=== PATIENT | male | born 1965 | race Caucasian/White ===

== ENCOUNTER 2017-07-11 08:16 | Emergency (ER) | payer MEDICAID, OTHER, SELFPAY ==
[~2017-07-11] VITALS: Ht 172.7 cm; Wt 70.1 kg
[2017-07-11 08:19] VITALS: BP 134/86
== END 2017-07-11 09:12 | disposition home or self-care (01) ==
LOC: ED 09:05
DX: B35.4 Tinea corporis (principal)
CPT/HCPCS: 82962; 99283

== ENCOUNTER 2018-02-05 23:52 | Emergency (ER) | payer MEDICAID, OTHER ==
[~2018-02-05] VITALS: Ht 172.7 cm; Wt 74.0 kg
[2018-02-05 23:53] VITALS: BP 141/95
== END 2018-02-06 00:49 | disposition home or self-care (01) ==
LOC: ED 23:59
DX: R21 Rash and other nonspecific skin eruption (principal); B35.4 Tinea corporis
CPT/HCPCS: 99283

== ENCOUNTER 2020-05-18 12:13 | Emergency (ER) | payer MEDICAID ==
[~2020-05-18] VITALS: Ht 172.7 cm; Wt 71.3 kg
--- NOTE | 2020-05-18 12:56 | NUR ---
discharge planner: patient ambulatory to room from [facility]
[2020-05-18] MEDS ORDERED: SODIUM CHLORIDE FLUSH 10ML SYR IVF ONE (13:30)
[2020-05-18] MEDS ORDERED: LISI-170 PO (13:43)
[2020-05-18 13:48] LABS: BASOPHILS % (AUTO) 0 % (0-1); EOSINOPHILS % (AUTO) 2 % (1-7); LYMPHOCYTES % (AUTO) 15 % (22-44); MEAN CORPUSCULAR HEMOGLOBIN 31.7 pg (27.5-34.5); MEAN CORPUSCULAR HGB CONC 33.2 g/dL (33.2-36.2); MONOCYTES % (AUTO) 42 % (2-9); NEUTROPHILS % (AUTO) 42 % (42-75); PLATELET COUNT 207 x10^3/uL (130-400); RED BLOOD COUNT 4.67 x10^6/uL (4.38-5.82); RED CELL DISTRIBUTION WIDTH 13.4 % (9.4-14.8)
--- NOTE | 2020-05-18 13:49 | NUR ---
BREAK RN: PT VSS, PIV ESTABLISHED W/O DIFFICULTY. POC DISCUSSED AND QUESTIONS ANSWERED. CALL LIGHT W/I REACH, NAD NOTED.
[2020-05-18 13:51] LABS: ALANINE AMINOTRANSFERASE 75 U/L (12-78); ALBUMIN 3.9 g/dL (3.4-5.0); ANION GAP 5 mmol/L (5-15); CALCIUM 9.3 mg/dL (8.5-10.1); CHLORIDE 102 mmol/L (98-107); CREATININE 0.71 mg/dL (0.7-1.3)
[2020-05-18 13:52] LABS: MD NO
[2020-05-18 13:53] LABS: ALKALINE PHOSPHATASE 59 U/L (45-117); BILIRUBIN,TOTAL 0.8 mg/dL (0.2-1.0); TOTAL PROTEIN 7.9 g/dL (6.4-8.2)
[2020-05-18] MEDS ORDERED: OMNIPAQUE 350 MG/ML, 75ML BOTTLE ONE (14:35)
[2020-05-18 14:57] VITALS: BP 145/92
--- NOTE | 2020-05-18 14:57 | NUR ---
PT RESTING ON GURNEY. NADN. DAVLIA.
[2020-05-18] MEDS ORDERED: AMPICILLIN/SULBACTAM 3 GM in SODIUM CHLORIDE 0.9% 100 ML IV ONE (15:00)
== END 2020-05-18 15:45 | disposition home or self-care (01) ==
LOC: ED 13:06
DX: L03.211 Cellulitis of face (principal); F17.200 Nicotine dependence, unspecified, uncomplicated
CPT/HCPCS: 36415; 70487; 80053; 85025; 96365; 99285; J0295; Q9967

== ENCOUNTER 2020-07-12 09:42 | Emergency (ER) | payer MEDICAID ==
[~2020-07-12] VITALS: Ht 172.7 cm; Wt 70.3 kg
[~2020-07-12 09:42] MED LIST: LISI-170 PO
[2020-07-12 09:44] VITALS: BP 161/93
== END 2020-07-12 10:49 | disposition home or self-care (01) ==
LOC: ED 10:29
DX: K08.89 Other specified disorders of teeth and supporting structures (principal); R22.0 Localized swelling, mass and lump, head
CPT/HCPCS: 99283

== ENCOUNTER 2020-11-23 11:53 | Emergency (ER) | payer MEDICAID ==
[~2020-11-23] VITALS: Ht 172.7 cm; Wt 70.5 kg
[2020-11-23 11:57] VITALS: BP 126/77
== END 2020-11-23 12:30 | disposition home or self-care (01) ==
LOC: ED 12:00
DX: K02.9 Dental caries, unspecified (principal); R22.0 Localized swelling, mass and lump, head
CPT/HCPCS: 99283

== ENCOUNTER 2020-11-24 16:20 | Emergency (ER) | payer MEDICAID ==
[~2020-11-24] VITALS: Ht 172.7 cm; Wt 71.7 kg
--- NOTE | 2020-11-24 17:10 | NUR ---
US ONGOING AT BEDSIDE PT IN BED WITH NO SIGNS OR SYMPTOMS OF ACUTE DISTRESS NOTED RESPIRATIONS EVEN AND UNLABORED
--- NOTE | 2020-11-24 17:22 | NUR ---
RN AND MD AT BEDSIDE TO ASSESS, PT DENIES RECENT TRAUMA OR NEEDLE STICK ON R. PT DENIES PAIN AT THIS TIME. IN BED WITH NO SIGNS OR SYMPTOMS OF ACUTE DISTRESS NOTED RESPIRATIONS EVEN AND UNLABORED
[2020-11-24 17:37] LABS: BASOPHILS % (AUTO) 1 % (0-1); EOSINOPHILS % (AUTO) 3 % (1-7); LYMPHOCYTES % (AUTO) 22 % (22-44); MEAN CORPUSCULAR HEMOGLOBIN 32.3 pg (27.5-34.5); MEAN CORPUSCULAR HGB CONC 33.3 g/dL (33.2-36.2); MEAN PLATELET VOLUME 6.8 fL (7.4-10.4); MONOCYTES % (AUTO) 19 % (2-9); NEUTROPHILS % (AUTO) 55 % (42-75); PLATELET COUNT 336 x10^3/uL (130-400); RED BLOOD COUNT 3.91 x10^6/uL (4.38-5.82); RED CELL DISTRIBUTION WIDTH 13.7 % (9.4-14.8)
[2020-11-24 17:49] LABS: ALANINE AMINOTRANSFERASE 30 U/L (12-78); ALBUMIN 3.6 g/dL (3.4-5.0); ANION GAP 7 mmol/L (5-15); CALCIUM 9.2 mg/dL (8.5-10.1); CHLORIDE 101 mmol/L (98-107); INTERNATIONAL NORMALIZED RATIO 1.05 (0.93-1.1); PROTHROMBIN TIME 11.2 Seconds (9.6-11.5)
[2020-11-24 17:51] LABS: ALKALINE PHOSPHATASE 74 U/L (45-117); BILIRUBIN,TOTAL 0.5 mg/dL (0.2-1.0); TOTAL PROTEIN 8.1 g/dL (6.4-8.2)
[2020-11-24 18:26] LABS: MD SCAN
[2020-11-24 18:30] VITALS: BP 131/86
== END 2020-11-24 18:32 | disposition home or self-care (01) ==
LOC: ED 18:16
DX: S40.021A Contusion of right upper arm, initial encounter (principal); R58 Hemorrhage, not elsewhere classified; X58.XXXA Exposure to other specified factors, initial encounter; Y93.89 Activity, other specified; Y92.89 Other specified places as the place of occurrence of the external cause; Y99.8 Other external cause status
CPT/HCPCS: 36415; 80053; 85025; 85610; 85730; 99285

== ENCOUNTER 2021-04-18 11:20 | Emergency (ER) | payer MEDICAID ==
[~2021-04-18] VITALS: Ht 172.7 cm; Wt 74.0 kg
[2021-04-18 11:55] VITALS: BP 159/91
--- NOTE | 2021-04-18 12:23 | NUR ---
PT D/C WITH D/C SUMMARY AND SCRIPTS. ALL QUESTIONS ANSWERED. PT AMBUALTES TO REGISTRATION DESK WITH STEADY GAIT FOR D/C HOME. PT DENIES ANY OTHER NEEDS PERTAINING TO THIS VISIT.
== END 2021-04-18 12:25 | disposition home or self-care (01) ==
LOC: ED 12:04
DX: K04.7 Periapical abscess without sinus (principal); K02.9 Dental caries, unspecified; K08.89 Other specified disorders of teeth and supporting structures
CPT/HCPCS: 99283